=== PATIENT | male | born 1965 | race Caucasian/White ===

== ENCOUNTER 2016-05-10 01:05 | Emergency (ER) | payer OTHER ==
[2016-05-10] MEDS ORDERED: ONDANSETRON HCL/PF 2 MG/ML VIAL IV ONE (01:55)
--- NOTE | 2016-05-10 01:56 | ERNOTE ---
Abdominal HPI - General Chief Complaint: Abdominal Pain Time Seen by Provider: 05/10/16 01:44 Source: patient Exam Limitations: no limitations - Immun/Allergies/Home Medications Immunizatons: IMMUNIZATION HX Immunizations Up to Date Yes History of Influenza Vaccine No Hx Pneumococcal Vaccination Yes Allergies/Adverse Reactions: Allergies No Known Allergies Allergy (Unverified 05/10/16 01:26) Home Medications: HOME MEDICATIONS Dicyclomine HCl [Bentyl] 10 mg PO TID PRN #20 capsule 05/10/16 [Last Taken Unknown] Levothyroxine Sodium [Synthroid] 88 mcg PO DAILY 05/10/16 [Last Taken Unknown] Lisinopril [Zestril] 25 mg PO DAILY 05/10/16 [Last Taken Unknown] Metformin HCl [Metformin HCl ER] 1,000 mg PO BID 05/10/16 [Last Taken Unknown] Simvastatin 10 mg PO HS 05/10/16 [Last Taken Unknown] Tizanidine HCl 4 mg PO BID 05/10/16 [Last Taken Unknown] Venlafaxine HCl [Venlafaxine HCl ER] 225 mg PO DAILY 05/10/16 [Last Taken Unknown] - History of Present Illness Narrative: Pt had onset of periumbilical abdominal pain approx 24 hours ago. Had some nausea and vomited x 1. Tried to go to sleep but couldn't sleep. Pain has now moved to the RLQ. Timing: getting worse Quality: moderate, severe, fullness, sharpness Activities at Onset: none Modifying Factors - (Worsens): Present: lying down, movement Associated Symptoms: Present: nausea, vomiting, loss of appetite Prior Abdominal Problems: Present: none Review of Systems - Review of Systems Constitutional: Present: See HPI, fever - subjective, chills, diaphoresis, fatigue EYE: Present: no symptoms reported ENT: Present: no symptoms reported Respiratory: Present: no symptoms reported Cardiology: Present: no symptoms reported Gastrointestinal/Abdominal: Present: See HPI, eating less, drinking less Genitourinary: Absent: frequency, pain, dysuria Musculoskeletal: Present: no symptoms reported Skin: Present: no symptoms reported Neurological: Present: no symptoms reported Endocrine: Present: no symptoms reported Hematologic/Lymphatic: Present: no symptoms reported - Patient's Past Medical History Patient History - Medical: Arthritis, Diabetes Type 2, Hypothyroidism Patient History - Cardiac/Respiratory: Hypertension, Hyperlipidemia, Sleep Apnea Patient History - Cancer: No Hx of Cancer Patient History - Surgical Procedures: Other Patient History - Other: None - Social History Living Situations: other Abuse History: No History of abuse Psych History: Hx of Anxiety, Hx of Depression Smoking Status: Never smoker Do you dip or chew tobacco: No Alcohol Use: heavy Drug Use: none - Immunizations Immunizations Up to Date: Yes Hx Pneumococcal Vaccination: Yes History of Influenza Vaccine: No Physical Exam - Physical Exam General Appearance: Present: wd/wn, alert, no apparent distress Ears, Nose, Throat: Present: normal ENT inspection, hearing grossly normal Neck: Present: normal inspection, nontender Respiratory: Present: no respiratory distress, normal breath sounds, no accessory muscle use, chest nontender, lungs clear Cardiovascular/Chest: Present: regular rate, rhythm, no murmur, normal peripheral pulses Gastrointestinal/Abdominal: Present: normal bowel sounds, tenderness - RLQ, , rebound - mild. Absent: guarding Back Exam: Present: normal inspection, normal range of motion, no CVA tenderness Extremity Exam: Present: normal inspection, non-tender, no edema, normal range of motion Neurological Exam: Present: alert, oriented, normal mood/affect, no motor/ sensory deficits Skin Exam: Present: normal color, warm/dry Lymphatic Exam: Present: no adenopathy ED Progress - Results and Orders Patient's Lab Results:: I have reviewed the patient's lab results. Results and Orders: Laboratory Tests 05/10/16 05/10/16 01:55 01:55 WBC 15.8 H Hgb 12.9 L Hct 37.6 L Neutrophils % 77.2 H Sodium 138 Potassium 5.0 H Chloride 102 Carbon Dioxide 21.6 L Anion Gap 19.4 H BUN 17 Creatinine 1.72 H Est GFR (Non-Af Amer) 45 L BUN/Creatinine Ratio 9.9 Random Glucose 200 H Calcium 8.9 Total Bilirubin 1.0 AST 23 ALT 68 H Alkaline Phosphatase 53 Total Protein 7.9 Albumin 4.0 Amylase 25 Lipase 102 Laboratory Tests 05/10/16 05/10/16 06:05 06:05 ESR 21 H C-Reactive Prot, Quant 6.1 H - Vital Signs Patient's Vital Signs:: I have reviewed the patient's vital signs. Vital Signs: Vital Signs 05/10/16 01:19 Temperature 38.0 C H Pulse Rate 104 H Respiratory 16 Rate Blood Pressure 117/66 O2 Sat by Pulse 96 Oximetry - CT/Ultrasound CT/Ultrasound Narrative: Thickened cecum and hepatic flexure with mild stranding may be inflammatory / infectious process. Unremarkable appendix. Tiny stone in a contracted gallbladder. Mild hepatomegaly with fatty infiltration. Slightly patulous anal canal with no herniated bowel. - Progress/Reassessment Chief Complaint: Abdominal Pain Progress Note-Subjective: 05/10/16 06:[address] results CRP and ESR ordered. 05/10/16 07:31 Discussed getting an appointment with his PCP next week for follow up in case it does not resolve. Departure - Departure Clinical Impression: Colitis presumed infectious Disposition: Home Follow Up Needed Condition: Good Instructions: Colitis Referrals: Karo Meneses FNP [Primary Care Provider] - Prescriptions: Dicyclomine HCl [Bentyl] 10 mg PO TID PRN #20 capsule PRN Reason: Pain
--- OUTSIDE RECORDS SUMMARY | 2016-05-10 02:05 | XMS REPORT | Continuity of Care Document ---
:1965 Author Organization [employer] [place] [address] Care Team Providers Name Role Phone Provider, None Per Patient Primary Care Provider Unavailable Source Comments This disclosure is being made pursuant to the [employer] program and maynot contain all information available regarding this patient.[facility] Active Allergies and Adverse Reactions No Known Allergies Current Medications Be aware that medications may not be up to date as of this document. Alwaysverify current medications with the patient. Prescription Sig. Disp. Refills Start Date End Date Status metformin (GLUCOPHAGE) Take 1,000 mg by Active 1000 MG tablet mouth 2 (two) times daily with meals. lisinopril Take 20 mg by Active (PRINIVIL,ZESTRIL) 20 MG mouth daily. tablet levothyroxine (SYNTHROID, Take 100 mcg by Active LEVOTHROID) 100 MCG tablet mouth every morning. Active Problems No known active problems Most Recent Encounters Date Type Specialty Providers Description 03/09/2016 Data Import Social History Tobacco Use Types Packs/Day Years Used Date Never Smoker Plan of Care Health Maintenance Due Date Last Done Comments Hepatitis C Screening 02/25/1982 Tetanus/Pertussis (1 - Tdap) 02/25/1983 Colonoscopy 02/25/2014 Well Adult Visit 02/25/2014 Influenza Immunization (#1) 2015 Results from Last 3 Months Not on file
[2016-05-10] MEDS ORDERED: NORMAL SALINE 1,000 ML IV ONE (02:06)
[2016-05-10] MEDS ORDERED: ONDANSETRON HCL/PF 2 MG/ML VIAL ONE (02:07)
[2016-05-10 02:18] LABS: Hematocrit 37.6 % (42.0-52.0); Hemoglobin 12.9 gm/dL (13.5-18.0); Mean Cell Volume 93.1 fl (78-100); Mean Corpuscular Hemoglobin 31.9 pg (27-31); Mean Corpuscular Hgb Conc 34.3 g/dl (32-36); Mean Platelet Volume 10.6 fl (6.0-9.5); Neutrophil # 12.2 K/mm3 (1.3-6.0); Neutrophil % 77.2 % (42-75.0); Platelet Count 227 K/mm3 (150-450); Red Blood Count 4.04 M/mm3 (4.7-6.0); Red Cell Distribution Width 12.6 % (11.5-14.0); White Blood Count 15.8 K/mm3 (4.0-10.5)
[2016-05-10 02:29] LABS: Anion Gap 19.4 mmol/L (6.8-13.8); BUN/Creatinine Ratio 9.9 (9.0-21.6); Ca. Corrected For Albumin 8.6 mg/dL (8.4-10.2); Calcium * 8.9 mg/dL (7.9-10.9); Carbon Dioxide 21.6 mmol/L (24-32.6); Total Protein 7.9 gm/dL (6.2-8.2)
[2016-05-10] MEDS ORDERED: DIATRIZOATE MEGLU/DIATRIZO SOD 30 ML BTL PO ONE (02:59)
[2016-05-10] MEDS ORDERED: DIATRIZOATE MEGLU/DIATRIZO SOD 30 ML BTL ONE (03:02)
[2016-05-10 05:36] VITALS: BP 129/73
== END 2016-05-10 07:40 | disposition home or self-care (01) ==
LOC: ER 01:05
DX: K52.89 Other specified noninfective gastroenteritis and colitis (principal); E78.5 Hyperlipidemia, unspecified; E03.9 Hypothyroidism, unspecified; E11.9 Type 2 diabetes mellitus without complications; F41.9 Anxiety disorder, unspecified; F32.9 Major depressive disorder, single episode, unspecified

== ENCOUNTER 2017-01-04 09:13 | Emergency (ER) | payer OTHER ==
[2017-01-04] MEDS ORDERED: METOCLOPRAMIDE HCL 5 MG/ML VIAL IV ONE (09:33)
[2017-01-04] MEDS ORDERED: diphenhydrAMINE HCL 50 MG/ML VIAL IV ONE (09:33)
[2017-01-04] MEDS ORDERED: diphenhydrAMINE HCL 50 MG/ML VIAL ONE (09:40)
[2017-01-04] MEDS ORDERED: METOCLOPRAMIDE HCL 5 MG/ML VIAL ONE (09:40)
[2017-01-04 09:46] LABS: Hematocrit 38.7 % (42.0-52.0); Hemoglobin 13.3 gm/dL (13.5-18.0); Mean Cell Volume 93.9 fl (78-100); Mean Corpuscular Hemoglobin 32.3 pg (27-31); Mean Corpuscular Hgb Conc 34.4 g/dl (32-36); Mean Platelet Volume 10.5 fl (6.0-9.5); Neutrophil # 6.8 K/mm3 (1.3-6.0); Neutrophil % 62.8 % (42-75.0); Platelet Count 223 K/mm3 (150-450); Red Blood Count 4.12 M/mm3 (4.7-6.0); Red Cell Distribution Width 12.4 % (11.5-14.0); White Blood Count 10.7 K/mm3 (4.0-10.5)
[2017-01-04 09:59] LABS: Albumin * 4.1 gm/dl (3.4-5.0); Anion Gap 15.1 mmol/L (6.8-13.8); BUN/Creatinine Ratio 13.4 (9.0-21.6); Bilirubin, Total 0.7 mg/dL (0.0-1.1); Calcium * 9.4 mg/dL (7.9-10.9); Carbon Dioxide 23.7 mmol/L (24-32.6); Magnesium 1.4 mg/dL (1.2-2.8); Potassium 4.8 mmol/L (3.4-4.6); Total Protein 8.2 gm/dL (6.2-8.2)
[2017-01-04] MEDS ORDERED: DIATRIZOATE MEGLUMINE, SODIUM 30 ML BTL ONE (10:06)
--- NOTE | 2017-01-04 10:09 | ERNOTE ---
Abdominal HPI - General Chief Complaint: Abdominal Pain Time Seen by Provider: 01/04/17 09:23 Source: patient Exam Limitations: no limitations - Immun/Allergies/Home Medications Immunizatons: IMMUNIZATION HX Immunizations Up to Date Yes History of Influenza Vaccine No Hx Pneumococcal Vaccination Yes Allergies/Adverse Reactions: Allergies No Known Allergies Allergy (Verified 01/04/17 09:21) Home Medications: HOME MEDICATIONS Levothyroxine Sodium [Synthroid] 88 mcg PO DAILY 05/10/16 [Last Taken Unknown] Lisinopril [Zestril] 25 mg PO DAILY 05/10/16 [Last Taken Unknown] Simvastatin 10 mg PO HS 05/10/16 [Last Taken Unknown] Venlafaxine HCl [Venlafaxine HCl ER] 225 mg PO DAILY 05/10/16 [Last Taken Unknown] metFORMIN HCL [Metformin HCl ER] 1,000 mg PO BID 05/10/16 [Last Taken Unknown] tiZANidine HCL [Tizanidine HCl] 4 mg PO BID 05/10/16 [Last Taken Unknown] Naproxen [Naprosyn] 500 mg PO BID #60 tablet 01/04/17 [Last Taken Unknown] - History of Present Illness Narrative: Patient presents with right-sided abdominal pain, somewhat reminiscent of the pain that he had in March when he was diagnosed with colitis. He describes the pain as moderate in severity. Timing: constant Quality: moderate Activities at Onset: none Associated Symptoms: Present: nausea Prior Abdominal Problems: Present: similar symptoms Review of Systems - Review of Systems Constitutional: Present: See HPI EYE: Present: no symptoms reported ENT: Present: no symptoms reported Respiratory: Present: no symptoms reported Cardiology: Present: no symptoms reported Gastrointestinal/Abdominal: Present: See HPI Genitourinary: Present: no symptoms reported Musculoskeletal: Present: no symptoms reported Skin: Present: no symptoms reported Neurological: Present: no symptoms reported Endocrine: Present: no symptoms reported Hematologic/Lymphatic: Present: no symptoms reported Psych: Present: no symptoms reported - Patient's Past Medical History Patient History - Medical: Arthritis, Diabetes Type 2, Hypothyroidism, Other - colitis Patient History - Cardiac/Respiratory: Hypertension, Hyperlipidemia, Sleep Apnea Patient History - Cancer: No Hx of Cancer Patient History - Surgical Procedures: Other Patient History - Other: None - Social History Living Situations: home Abuse History: No History of abuse Psych History: Hx of Anxiety, Hx of Depression Alcohol Use: none Drug Use: none - Immunizations Immunizations Up to Date: Yes Hx Pneumococcal Vaccination: Yes History of Influenza Vaccine: No Physical Exam - Physical Exam General Appearance: Present: wd/wn, alert, moderate distress Head Exam: Present: normal inspection Eye Exam: Normal inspection: bilateral, PERRL: bilateral Ears, Nose, Throat: Present: normal ENT inspection, H, normal pharynx Neck: Present: normal inspection, nontender Respiratory: Present: no respiratory distress, normal breath sounds, no accessory muscle use, chest nontender, lungs clear Cardiovascular/Chest: Present: regular rate, rhythm, no murmur, normal peripheral pulses Gastrointestinal/Abdominal: Present: normal bowel sounds, nondistended, tenderness, hepatomegaly, other - morbidly obese Rectal Exam: Present: deferred Back Exam: Present: normal inspection, normal range of motion Extremity Exam: Present: normal inspection, non-tender, no edema, normal range of motion Neurological Exam: Present: alert, oriented, normal mood/affect Skin Exam: Present: normal color, warm/dry Lymphatic Exam: Present: no adenopathy ED Progress - Results and Orders Patient's Lab Results:: I have reviewed the patient's lab results. - Vital Signs Patient's Vital Signs:: I have reviewed the patient's vital signs. Vital Signs: Vital Signs 01/04/17 09:16 Temperature 36.8 C Pulse Rate 84 Respiratory 12 Rate Blood Pressure 110/73 O2 Sat by Pulse 95 Oximetry - CT/Ultrasound CT/Ultrasound Narrative: Ultrasound of the liver gallbladder as well as CT of the abdomen and pelvis were reviewed by me - Progress/Reassessment Chief Complaint: Abdominal Pain Plan - Plan Plan: Patient appears to have inflammation in the form of epiploic appendagitis and this is nonsurgical . Patient will be given a prescription for nonsteroidal anti-inflammatories and he will follow-up with his family physician as needed. Departure Clinical Impression: Epiploic appendagitis - Departure Disposition: Home self-care Condition: Good Instructions: Abdominal Pain, Pediatric Referrals: Karo Meneses FNP [Primary Care Provider] - Prescriptions: Naproxen [Naprosyn] 500 mg PO BID #60 tablet
[2017-01-04] MEDS ORDERED: DIATRIZOATE MEGLUMINE, SODIUM 30 ML BTL PO ONE (10:12)
[2017-01-04 10:26] LABS: Urine Bilirubin Negative (NEGATIVE); Urine Ketone Negative (NEGATIVE); Urine Nitrite Negative (NEGATIVE); Urine Protein Negative (NEGATIVE); Urine Specific Gravity 1.025 SP.GR. (1.005-1.030); Urine Urobilinogen Normal (NORMAL)
[2017-01-04] MEDS ORDERED: NORMAL SALINE 1,000 ML IV ONE (10:30)
[2017-01-04 10:36] LABS: Urine Appearance Slightly Cloudy; Urine Bacteria None Seen; Urine Blood 5 /ul (NEGATIVE); Urine Color Yellow; Urine Fine Granular Cast 0-5 /LPF; Urine RBC 0-5 /hpf (0-5); Urine WBC 0-5 /hpf (0-5)
[2017-01-04 13:38] VITALS: BP 113/56
== END 2017-01-04 13:35 | disposition home or self-care (01) ==
LOC: ER 09:13
DX: K63.89 Other specified diseases of intestine (principal); M19.90 Unspecified osteoarthritis, unspecified site; E11.9 Type 2 diabetes mellitus without complications; E03.9 Hypothyroidism, unspecified; I10 Essential (primary) hypertension; E78.5 Hyperlipidemia, unspecified

== ENCOUNTER 2017-02-19 12:26 | Emergency (ER) | payer OTHER ==
[2017-02-19 12:36] VITALS: BP 128/98
--- NOTE | 2017-02-19 13:30 | ERNOTE ---
Lower Extremity HPI - General Lower Extremities Pain: ankle: right Time Seen by Provider: 02/19/17 12:39 Source: patient Exam Limitations: no limitations - Immun/Allergies/Home Medications Immunizations: IMMUNIZATION HX Immunizations Up to Date Yes History of Influenza Vaccine No Hx Pneumococcal Vaccination Yes Allergies/Adverse Reactions: Allergies Allergy/AdvReac Type Severity Reaction Status Date / Time No Known Allergies Allergy Verified 02/19/17 12:36 Home Medications: HOME MEDICATIONS Levothyroxine Sodium [Synthroid] 88 mcg PO DAILY 05/10/16 [Last Taken Unknown] Lisinopril [Zestril] 25 mg PO DAILY 05/10/16 [Last Taken Unknown] Simvastatin 10 mg PO HS 05/10/16 [Last Taken Unknown] Venlafaxine HCl [Venlafaxine HCl ER] 225 mg PO DAILY 05/10/16 [Last Taken Unknown] metFORMIN HCL [Metformin HCl ER] 1,000 mg PO BID 05/10/16 [Last Taken Unknown] tiZANidine HCL [Tizanidine HCl] 4 mg PO BID 05/10/16 [Last Taken Unknown] ALPRAZolam [Xanax] 0.25 mg PO PRN PRN 02/19/17 [Last Taken Unknown] Diclofenac Sodium [Diclofenac Sodium ER] 100 mg PO DAILY 02/19/17 [Last Taken Unknown] Naproxen [Naprosyn] 500 mg PO BID #60 tablet 02/19/17 [Last Taken Unknown] - History of Present Illness Narrative: Patient has a history of right ankle sprains, first one approximately 7 years ago and another one approximately one week ago. Patient twisted it again yesterday and now is having some difficulty with weightbearing. Describes her pain as being loose moderate in intensity that increases with weightbearing. Occurred: yesterday Method of Injury: Reports: twisted Loss of Consciousness: Reports: no loss of consciousness Other Injuries: Reports: none Review of Systems - Review of Systems Constitutional: Present: See HPI EYE: Present: no symptoms reported ENT: Present: no symptoms reported Respiratory: Present: no symptoms reported Cardiology: Present: no symptoms reported Gastrointestinal/Abdominal: Present: no symptoms reported Genitourinary: Present: no symptoms reported Musculoskeletal: Present: joint pain, joint swelling, other - decreased range of motion in the right ankle secondary to pain and swelling, distribution of pain that follows the peroneus musculature Skin: Present: no symptoms reported Neurological: Present: no symptoms reported Endocrine: Present: no symptoms reported Hematologic/Lymphatic: Present: no symptoms reported Psych: Present: no symptoms reported - Patient's Past Medical History Patient History - Medical: Arthritis, Diabetes Type 2, Hypothyroidism, Other Patient History - Cardiac/Respiratory: Hypertension, Hyperlipidemia, Sleep Apnea Patient History - Cancer: No Hx of Cancer Patient History - Surgical Procedures: Other Patient History - Other: None - Social History Living Situations: home Abuse History: No History of abuse Psych History: Hx of Anxiety, Hx of Depression Smoking Status: Never smoker Alcohol Use: occasionally Drug Use: none - Immunizations Immunizations Up to Date: Yes Hx Pneumococcal Vaccination: Yes History of Influenza Vaccine: No ED Progress - Vital Signs Patient's Vital Signs:: I have reviewed the patient's vital signs. Vital Signs: Vital Signs 02/19/17 12:32 Temperature 36.6 C Pulse Rate 94 Respiratory 16 Rate Blood Pressure 128/98 O2 Sat by Pulse 99 Oximetry - X-Ray X-Ray #1 X-Ray: ankle Interpretation: Reviewed by me - Progress/Reassessment Chief Complaint: Ankle Injury/ Pain Plan - Plan Plan: I suspect the patient has hypermobility of the ankle due to multiple sprain type injuries. Patient be placed in an air splint, nonsteroidal anti- inflammatories and a referral to orthopedic surgery. Departure Clinical Impression: Ankle sprain Qualifiers: Encounter type: initial encounter Involved ligament of ankle: unspecified ligament Laterality: right Qualified Code(s): S93.401A - Sprain of unspecified ligament of right ankle, initial encounter - Departure Disposition: Home self-care Condition: Good Instructions: How to Use a Stirrup Ankle Brace, [id number], Ankle Sprain, [id number] Referrals: Karo Meneses FNP [Primary Care Provider] - Prescriptions: Naproxen [Naprosyn] 500 mg PO BID #60 tablet
== END 2017-02-19 13:30 | disposition home or self-care (01) ==
LOC: ER 12:26
PROC: 2W3QX1Z Immobilization of Right Lower Leg using Splint (ICD-10-PCS; principal; 2017-02-19)
DX: S93.401A Sprain of unspecified ligament of right ankle, initial encounter (principal); M19.90 Unspecified osteoarthritis, unspecified site; E11.9 Type 2 diabetes mellitus without complications; E03.9 Hypothyroidism, unspecified; I10 Essential (primary) hypertension; E78.5 Hyperlipidemia, unspecified; X58.XXXA Exposure to other specified factors, initial encounter; Y93.9 Activity, unspecified; Y92.9 Unspecified place or not applicable

== ENCOUNTER 2018-12-20 02:49 | Inpatient (IN) ==
[2018-12-20] MEDS ORDERED: NALOXONE HCL 1 MG/1 ML SYRG IV ONE (03:06)
[2018-12-20] MEDS ORDERED: NORMAL SALINE 1,000 ML IV ONE ×4 (03:07→09:32)
--- NOTE | 2018-12-20 03:10 | ERNOTE ---
<Farooq Baez - Last Filed: 12/20/18 07:51> Neuro HPI ER Record Date of Service: 12/20/18 Presenting Symptoms: confusion, other Time Seen by Provider: 12/20/18 03:03 Source: EMS notes reviewed Exam Limitations: intoxication - Intoxication Immunizations: IMMUNIZATION HX Immunizations Up to Date Yes History of Influenza Vaccine No Hx Pneumococcal Vaccination No Allergies/Adverse Reactions: Allergies Allergy/AdvReac Type Severity Reaction Status Date / Time No Known Allergies Allergy Verified 11/28/18 14:21 Home Medications: HOME MEDICATIONS C-PAP See Dose Instructions .ROUTE .MEDSUPPLY #1 ea 06/14/18 [Last Taken Unknown] levothyroxine 88 mcg tablet See Rx Instructions .ROUTE .COMPLEX #90 tab 07/01/18 [Last Taken Unknown] venlafaxine ER 225 mg tablet,extended release 24 hr See Rx Instructions .ROUTE .COMPLEX #90 tab 07/01/18 [Last Taken Unknown] simvastatin 40 mg tablet 40 mg PO QPM #90 tab 07/30/18 [Last Taken Unknown] metformin ER 1,000 mg tablet,extended release 24hr 1,000 mg PO QPM #90 tab 08/07/18 [Last Taken Unknown] FreeStyle Lite Strips See Dose Instructions .ROUTE .MEDSUPPLY #100 ea NS 10/07/18 [Last Taken Unknown] glipizide ER 10 mg tablet, extended release 24 hr 10 mg PO DAILY #90 tab 10/07/18 [Last Taken Unknown] lisinopril 10 mg tablet 5 mg PO DAILY #45 tab 10/07/18 [Last Taken Unknown] alprazolam 1 mg tablet 1 mg PO TID PRN #90 tab 11/04/18 [Last Taken Unknown] blood sugar diagnostic strips See Dose Instructions .ROUTE .MEDSUPPLY #100 ea 11/04/18 [Last Taken Unknown] blood-glucose meter See Dose Instructions .ROUTE .MEDSUPPLY #1 ea 11/04/18 [Last Taken Unknown] tizanidine 4 mg capsule 4 mg PO TID PRN #60 cap 11/07/18 [Last Taken Unknown] tramadol 50 mg tablet 50 mg PO Q8H PRN #30 tab 11/20/18 [Last Taken Unknown] diclofenac sodium 50 mg tablet,delayed release 50 mg PO DAILY #30 tab 12/09/18 [Last Taken Unknown] - History of Present Illness Narrative: This is a 53-year-old gentleman brought to the emergency department by EMS. He is obtunded. By report the patient was drinking since 7 PM. Police were called out to the house several times this evening as there was an argument between the patient and his . The nursing staff spoke with the and they were the is not willing to come out to the hospital. By report the patient may have taken tizanidine. Apparently someone in talking to the patient before he became obtunded and said that the patient admitted to taking 1 Xanax. No other information is available Review of Systems - Narrative Narrative: Unable to obtain review of systems secondary to patient condition Medical History (Updated 12/20/18 @ 06:12 by Farooq Baez MD) Osteoarthritis (Chronic) Onset Date: Unknown Obstructive sleep apnea (Chronic) Onset Date: Unknown Obesity (Chronic) Onset Date: Unknown Hypothyroidism (Chronic) Onset Date: Unknown Hypertension (Chronic) Onset Date: Unknown Type 2 diabetes mellitus (Chronic) Onset Date: Unknown Depression (Chronic) Onset Date: Unknown Anxiety (Chronic) Onset Date: Unknown Cirrhosis of liver Onset Date: Unknown History of hepatitis C Onset Date: Unknown Surgical History: Surgical History (Updated 10/25/17 @ 14:04 by Danni Allred RN) H/O surgical amputation of finger Onset Date: Unknown History of nasal surgery Onset Date: Unknown Family History: Family History (Updated 10/25/17 @ 14:05 by Danni Allred RN) Father Diabetes Mother Renal failure Post-operative complication Social History: (Last Updated 11/28/18 @ 16:06 by ALBERT Aguirre) Social History: adopted: No foster care: No jail: No Marital status: household members: spouse, children number of children: 2 caregiver/support person: No current occupational status: employed current occupation: [employer] Highest education level completed: some college, no degree Service: No Tobacco: Smoking Status: Never smoker Alcohol: alcohol intake: current Alcohol type: hard liquor alcohol intake frequency: a few times a week Substance Use: substance use type: does not use Dietary Habits: caffeine: Yes caffeine comment: somedays Type: carbonated beverages Physical Exam - Physical Exam General Appearance: Present: wd/wn, no apparent distress, other - Patient is sleeping. Minimal response to painful stimuli. Smells strongly of alcohol. Protecting his airway Head Exam: Present: normal inspection, no evidence of injury Eye Exam: Normal inspection: bilateral, PERRL: bilateral, Other: bilateral - Pupils are 4 mm and reactive Ears, Nose, Throat: Present: normal ENT inspection, normal pharynx Neck: Present: normal inspection Respiratory: Present: no respiratory distress, normal breath sounds, chest nontender, lungs clear Cardiovascular/Chest: Present: regular rate, rhythm, no murmur Gastrointestinal/Abdominal: Present: normal bowel sounds, nontender, nondistended Back Exam: Present: other - Back exam cannot be performed. This is a very large person who is Extremity Exam: Present: normal inspection - intoxicated nearly to the point of unconsciousness, normal range of motion Neurological Exam: Present: other - Patient is intoxicated. Protecting his airways. Localizes pain. Makes some mumbling noises. Eyes closed to voice Skin Exam: Present: normal color, warm/dry Lymphatic Exam: Present: no adenopathy Progress - Results and Orders Patient's Lab Results:: I have reviewed the patient's lab results. - Vital Signs Patient's Vital Signs:: I have reviewed the patient's vital signs. Vital Signs: Vital Signs 12/20/18 02:55 Pulse Rate 62 Respiratory Rate 21 H Blood Pressure 101/85 O2 Sat by Pulse Oximetry 91 L - EKG EKG #1 EKG read: Interp. by me EKG Comments: Sinus rhythm ventricular rate of 62. Normal axis. Normal intervals. No ST elevation. T wave flattening in 3 and V1 which are normal variants. T waves have normal morphology and direction EKG #2 EKG read: Interp. by me EKG Comments: Second EKG demonstrates sinus bradycardia ventricular rate of 55, axis is slightly leftward at -4 degrees. Again T wave inversion in 3 and a V1 which are normal variants. There is no signs of acute ischemia - Progress/Reassessment Chief Complaint: Altered Mental Status Plan - Plan Plan: The patient is gotten 4 L of saline IV. His blood pressures have improved to 87/42. Patient is now arousable. When I asked him why he took the things that he did last night he said that he "took them to get high "I question the patient in the presence of his nurse and the patient is adamant he did not take these things to hurt himself. Am going let him sober up more. I will reevaluate him in a bit of time and if he maintains the same story then we are going to let him go home. The patient's had a [place] catheter and received 5 L of saline. Not putting out much urine. We have rechecked his basic metabolic panel and his creatinine is up to 1.78 from 1.63. Interestingly his potassium was read back at 6.8. EKG is not consistent with a potassium of 6.8. I am going to have them get a completely new sample and recheck it. I think the patient needs to be kept here in the department until he starts to urinate significantly. If there is no urine output in the next few hours I am good I asked my colleague, Dr. Das, to admit the patient Departure Clinical Impression: Hyperkalemia, Hyperglycemia Drug overdose, intentional Qualifiers: Encounter type: initial encounter Qualified Code(s): T50.902A - Poisoning by unspecified drugs, medicaments and biological substances, intentional self-harm, initial encounter - Departure Disposition: Short Term Hospital Inpatient Condition: Serious <Manish Das - Last Filed: 12/20/18 09:31> Neuro HPI ER Record Immunizations: IMMUNIZATION HX Immunizations Up to Date Yes History of Influenza Vaccine No Hx Pneumococcal Vaccination No Medical History (Updated 12/20/18 @ 06:12 by Farooq Baez MD) Osteoarthritis (Chronic) Onset Date: Unknown Obstructive sleep apnea (Chronic) Onset Date: Unknown Obesity (Chronic) Onset Date: Unknown Hypothyroidism (Chronic) Onset Date: Unknown Hypertension (Chronic) Onset Date: Unknown Type 2 diabetes mellitus (Chronic) Onset Date: Unknown Depression (Chronic) Onset Date: Unknown Anxiety (Chronic) Onset Date: Unknown Cirrhosis of liver Onset Date: Unknown History of hepatitis C Onset Date: Unknown Surgical History: Surgical History (Updated 10/25/17 @ 14:04 by Danni Allred RN) H/O surgical amputation of finger Onset Date: Unknown History of nasal surgery Onset Date: Unknown Family History: Family History (Updated 10/25/17 @ 14:05 by Danni Allred RN) Father Diabetes Mother Renal failure Post-operative complication Social History: (Last Updated 11/28/18 @ 16:06 by ALBERT Aguirre) Social History: adopted: No foster care: No jail: No Marital status: household members: spouse, children number of children: 2 caregiver/support person: No current occupational status: employed 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 Highest education level completed: some college, no degree Service: No Tobacco: Smoking Status: Never smoker Alcohol: alcohol intake: current Alcohol type: hard liquor alcohol intake frequency: a few times a week Substance Use: substance use type: does not use Dietary Habits: caffeine: Yes caffeine comment: somedays Type: carbonated beverages Progress - Vital Signs Vital Signs: Vital Signs 12/20/18 02:55 12/20/18 02:57 12/20/18 03:17 Pulse Rate 62 62 65 Respiratory Rate 21 H 21 H Blood Pressure 101/85 103/85 O2 Sat by Pulse Oximetry 91 L 94 12/20/18 03:43 12/20/18 03:44 12/20/18 03:55 Pulse Rate 65 66 67 Respiratory Rate 21 H 20 21 H Blood Pressure 59/17 L 57/28 L 62/33 L O2 Sat by Pulse Oximetry 96 95 95 12/20/18 04:10 12/20/18 04:12 12/20/18 04:14 Pulse Rate 61 60 59 L Respiratory Rate 20 19 Blood Pressure 63/31 L 64/37 L 67/35 L O2 Sat by Pulse Oximetry 95 95 98 12/20/18 04:18 12/20/18 04:23 12/20/18 04:28 Pulse Rate 60 59 L 58 L Respiratory Rate 19 18 19 Blood Pressure 69/38 L 73/35 L 75/42 L O2 Sat by Pulse Oximetry 96 97 98 12/20/18 04:33 12/20/18 04:38 12/20/18 04:43 Pulse Rate 58 L 58 L 58 L Respiratory Rate 19 18 19 Blood Pressure 78/46 L 79/48 L 78/49 L O2 Sat by Pulse Oximetry 97 98 97 12/20/18 04:48 12/20/18 04:53 12/20/18 04:58 Pulse Rate 59 L 58 L 59 L Respiratory Rate 19 19 19 Blood Pressure 78/47 L 77/47 L 78/49 L O2 Sat by Pulse Oximetry 97 96 97 12/20/18 05:03 12/20/18 05:08 12/20/18 05:15 Pulse Rate 59 L 59 L 58 L Respiratory Rate 18 19 19 Blood Pressure 78/39 L 80/46 L 83/45 L O2 Sat by Pulse Oximetry 97 97 97 12/20/18 05:18 12/20/18 05:27 12/20/18 05:33 Pulse Rate 58 L 58 L 59 L Respiratory Rate 20 21 H 21 H Blood Pressure 75/46 L 80/51 L 75/50 L O2 Sat by Pulse Oximetry 97 97 97 12/20/18 05:39 12/20/18 05:44 12/20/18 05:53 Pulse Rate 58 L 59 L 59 L Respiratory Rate 20 21 H 21 H Blood Pressure 88/49 L 88/53 L 85/43 L O2 Sat by Pulse Oximetry 97 97 98 12/20/18 06:00 12/20/18 06:15 12/20/18 06:30 Pulse Rate 58 L 55 L 57 L Respiratory Rate 20 29 H 19 Blood Pressure 79/41 L 88/51 L 85/52 L O2 Sat by Pulse Oximetry 97 97 100 12/20/18 06:45 12/20/18 07:00 12/20/18 07:15 Pulse Rate 56 L 57 L 65 Respiratory Rate 20 20 19 Blood Pressure 81/47 L 80/51 L 84/45 L O2 Sat by Pulse Oximetry 97 96 98 12/20/18 07:38 12/20/18 07:45 12/20/18 08:00 Pulse Rate 58 L 58 L 54 L Respiratory Rate 19 19 20 Blood Pressure 86/52 L 84/48 L 81/54 L O2 Sat by Pulse Oximetry 97 97 98 12/20/18 08:39 12/20/18 08:45 12/20/18 09:00 Pulse Rate 57 L 58 L 67 Respiratory Rate 22 H 20 19 Blood Pressure 86/45 L 56/50 L 84/49 L O2 Sat by Pulse Oximetry 97 95 97 - Progress/Reassessment Progress:: Improved - Transfer of Care Expected Disposition: Admit Plan - Plan Plan: markus discussed with dr gandara, to admit to ccu
[2018-12-20 03:29] LABS: Hematocrit 36.9 % (42.0-52.0); Hemoglobin 12.5 gm/dL (13.5-18.0); Mean Cell Volume 96.9 fl (78-100); Mean Corpuscular Hemoglobin 32.8 pg (27-31); Mean Corpuscular Hgb Conc 33.9 g/dl (32-36); Mean Platelet Volume 10.3 fl (8-11.3); Neutrophil % 35.5 % (42-75.0); Platelet Count 242 K/mm3 (150-450); Red Blood Count 3.81 M/mm3 (4.7-6.0); Red Cell Distribution Width 13.2 % (11.5-14.0); White Blood Count 8.5 K/mm3 (4.0-10.5)
[2018-12-20 03:42] LABS: Cocaine Ur Negative (NEGATIVE); Urine Barbiturate Negative (NEGATIVE); Urine Benzodiazepines Negative (NEGATIVE); Urine Opiates Negative (NEGATIVE); Urine PCP Negative (NEGATIVE); Urine THC Negative (NEGATIVE)
[2018-12-20 03:43] LABS: ALT 57 U/L (19-67); AST 31 U/L (0-48); Albumin * 3.5 gm/dl (3.4-5.0); Alkaline Phosphatase * 55 U/L (50-170); Anion Gap 13.4 mmol/L (6.8-13.8); BUN/Creatinine Ratio 12.3 (9.0-21.6); Bilirubin, Total 0.2 mg/dL (0.0-1.1); Blood Urea Nitrogen 20 mg/dL (6-23); Ca. Corrected For Albumin 8.1 mg/dL (8.4-10.2); Carbon Dioxide 24.4 mmol/L (24-32.6); Chloride 103 mmol/L (97-106); Glucose * 342 mg/dL (70-110); Lipase 259 U/L (73-393); Potassium 4.8 mmol/L (3.4-4.6); Salicylate Less than 2.8 mg/dL (2.8-20.0); Sodium 136 mmol/L (132-142); Total Protein 6.9 gm/dL (6.2-8.2)
[2018-12-20] MEDS: NORMAL SALINE 1,000 ML IV ONE ×2 (04:11→05:07)
[2018-12-20] MEDS ORDERED: NORMAL SALINE 1,000 ML IV PRN (06:19)
[2018-12-20 07:22] LABS: Anion Gap 13.6 mmol/L (6.8-13.8); BUN/Creatinine Ratio 11.8 (9.0-21.6); Calcium * 6.8 mg/dL (7.9-10.9); Carbon Dioxide 21.3 mmol/L (24-32.6); Estimated Creat Clear 52.1
[2018-12-20 07:30] LABS: Potassium 6.9 mmol/L (3.4-4.6)
[2018-12-20 08:07] LABS: BUN/Creatinine Ratio 12.3 (9.0-21.6); Calcium * 6.6 mg/dL (7.9-10.9); Carbon Dioxide 20.9 mmol/L (24-32.6); Estimated Creat Clear 54.2
[2018-12-20 08:13] LABS: Potassium 6.9 mmol/L (3.4-4.6)
[2018-12-20] MEDS ORDERED: INSULIN REGULAR, HUMAN 100 UNITS/ML VIAL IV ONE (08:30)
[2018-12-20] MEDS ORDERED: CALCIUM GLUCONATE 4.65 MEQ/10 ML VIAL IV ONE (08:31)
[2018-12-20] MEDS ORDERED: SODIUM POLYSTYRENE SULFON/SORB 15 G/60 ML ORAL.SUSP PO ONE (09:34)
[2018-12-20] MEDS: NORMAL SALINE 1,000 ML IV PRN ×3 (09:42→21:47)
[2018-12-20 10:08] LABS: Anion Gap 13.8 mmol/L (6.8-13.8); BUN/Creatinine Ratio 13.2 (9.0-21.6); Blood Urea Nitrogen 22 mg/dL (6-23); Calcium * 7.2 mg/dL (7.9-10.9); Carbon Dioxide 19.9 mmol/L (24-32.6); Chloride 111 mmol/L (97-106); Estimated Creat Clear 55.5; Glucose * 298 mg/dL (70-110); Potassium 5.7 mmol/L (3.4-4.6); Sodium 139 mmol/L (132-142)
[2018-12-20 10:09] LABS: Troponin I Less than 0.017 ng/mL (0.00-0.10)
--- NOTE | 2018-12-20 12:09 | HP ---
Chief Complaint - Chief Complaint Date of Service: 12/20/18 Time of Service: 12:08 Chief Complaint: alcohol intoxication, hyperkalemia, hypotension History of Present Illness: Patient with past medical history of diabetes, decreased renal function, alcohol abuse was brought to the ER after excessive drinking and taking on clear substances. He was initially obtunded, only responding to deep sternal rub with hypotension. He was given aggressive IV hydration in the ED and pressors were not used. His potassium was found to be 6.9, verified on repeat. EKG did not reveal T wave changes. At the time of my exam, he wakens easily, and is able to answer questions. He reports drinking 1/5 of vodka last night and taking 4 tizanidine tablets. He says he drinks about 3 times a week. Recent medication adjustments were made to due to his decreased renal function and uncontrolled diabetes. He denies other symptoms of infection. Medical History (Updated 12/20/18 @ 13:03 by Karo Santos DO) Osteoarthritis (Chronic) Onset Date: Unknown Obstructive sleep apnea (Chronic) Onset Date: Unknown Obesity (Chronic) Onset Date: Unknown Hypothyroidism (Chronic) Onset Date: Unknown Hypertension (Chronic) Onset Date: Unknown Type 2 diabetes mellitus (Chronic) Onset Date: Unknown Depression (Chronic) Onset Date: Unknown Anxiety (Chronic) Onset Date: Unknown Cirrhosis of liver Onset Date: Unknown History of hepatitis C Onset Date: Unknown Surgical History: Surgical History (Updated 12/20/18 @ 12:09 by Karo Santos DO) H/O surgical amputation of finger Onset Date: Unknown History of nasal surgery Onset Date: Unknown Family History: Family History (Updated 10/25/17 @ 14:05 by Danni Allred RN) Father Diabetes Mother Renal failure Post-operative complication Social History: (Last Reviewed 12/20/18 @ 10:17 by Lenka Mello RN) Social History: adopted: No foster care: No prison: No Marital status: household members: spouse, children number of children: 2 caregiver/support person: No current occupational status: employed 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 Highest education level completed: some college, no degree Service: No Tobacco: Smoking Status: Never smoker Alcohol: alcohol intake: current Alcohol type: hard liquor alcohol intake frequency: a few times a week Substance Use: substance use type: does not use Dietary Habits: caffeine: Yes caffeine comment: somedays Type: carbonated beverages Review Of Systems (GEN) - Review of Systems Generalized/Overall Review: Absent: Fever EENTM: Absent: Throat Pain Respiratory: Absent: Cough, Shortness of Breath Cardiac: Absent: Chest Pain, Edema Abdominal: Absent: Nausea, Vomiting, Diarrhea Genitourinary: Absent: Urgency Musculoskeletal: Present: Joint Pain - Left shoulder after recent AC separation, bilateral knees Neurological: Absent: Seizure Skin: Present: No Symptoms Reported Immunizations: IMMUNIZATION HX Immunizations Up to Date Yes History of Influenza Vaccine No Hx Pneumococcal Vaccination No Allergies/Adverse Reactions: Allergies Allergy/AdvReac Type Severity Reaction Status Date / Time No Known Allergies Allergy Verified 12/20/18 10:17 Home Medications: HOME MEDICATIONS C-PAP See Dose Instructions .ROUTE .MEDSUPPLY #1 ea 06/14/18 [Last Taken Unknown] simvastatin 40 mg tablet 40 mg PO QPM #90 tab 07/30/18 [Last Taken 12/19/18] metformin ER 1,000 mg tablet,extended release 24hr 1,000 mg PO QPM #90 tab 08/07/18 [Last Taken 12/19/18] FreeStyle Lite Strips See Dose Instructions .ROUTE .MEDSUPPLY #100 ea NS 10/07/18 [Last Taken Unknown] glipizide ER 10 mg tablet, extended release 24 hr 10 mg PO DAILY #90 tab 10/07/18 [Last Taken 12/19/18] lisinopril 10 mg tablet 5 mg PO DAILY #45 tab 10/07/18 [Last Taken 12/19/18] alprazolam 1 mg tablet 1 mg PO TID PRN #90 tab 11/04/18 [Last Taken 12/19/18] blood sugar diagnostic strips See Dose Instructions .ROUTE .MEDSUPPLY #100 ea [Last Taken Unknown] blood-glucose meter See Dose Instructions .ROUTE .MEDSUPPLY #1 ea 11/04/18 [Last Taken Unknown] tizanidine 4 mg capsule 4 mg PO TID PRN #60 cap 11/07/18 [Last Taken 12/20/18] tramadol 50 mg tablet 50 mg PO Q8H PRN #30 tab 11/20/18 [Last Taken Unknown] diclofenac sodium 50 mg tablet,delayed release 50 mg PO DAILY #30 tab 12/09/18 [Last Taken 12/19/18] Levothyroxine Sodium [Synthroid] 88 mcg PO DAILY 12/20/18 [Last Taken 12/19/18] Melatonin 10 mg PO HS PRN 12/20/18 [Last Taken Unknown] Venlafaxine HCl [Venlafaxine HCl ER] 225 mg PO DAILY 12/20/18 [Last Taken 12/19/18] Exam - Exam Vital Signs: Vital Signs - Last Taken Temp 36 C 12/20/18 11:00 Pulse 67 12/20/18 11:00 Resp 20 12/20/18 11:00 BP 91/52 12/20/18 11:00 Pulse Ox 97 12/20/18 11:00 Constitutional: Present: No distress, Obese Respiratory: Present: lungs clear - Distant lung sounds secondary to body habitus, no respiratory distress Cardiovascular/Chest: Present: bradycardia Abdomen: Present: Normal bowel sounds, nontender, obese Extremity: Absent: lower extremity edema Neurologic: Present: alert Thoughts: Present: normal mood /affect Diagnostic Studies: Abnormal Lab Results 12/20/18 12/20/18 12/20/18 Range/Units 03:25 03:25 07:10 RBC 3.81 L (4.7-6.0) M/mm3 Hgb 12.5 L (13.5-18.0) gm/dL Hct 36.9 L (42.0-52.0) % MCH 32.8 H (27-31) pg Immature Gran % (Auto) 0.70 H (0.001-0.429) % Immature Gran # (Auto) 0.06 H (0.000-0.0310) K/mm3 Neutrophils % 35.5 L (42-75.0) % Lymphocytes % 51.7 H (20-51) % Eosinophils % 4.2 H (0.0-3.0) % Lymphocytes # 4.39 H (1.5-3.5) k/mm3 Potassium 4.8 H 6.9 H* D (3.4-4.6) mmol/L Chloride 107 H (97-106) mmol/L Carbon Dioxide 21.3 L (24-32.6) mmol/L Anion Gap (6.8-13.8) mmol/L Creatinine 1.63 H 1.78 H (0.4-1.4) mg/dL Est GFR (Non-Af Amer) 47 L 43 L (60-130) mL/min Random Glucose 342 H 412 H (70-110) mg/dL Lactic Acid, Venous (0.4-2.0) mmol/L Calcium 6.8 L (7.9-10.9) mg/dL Calcium Adj for Albumin 8.1 L (8.4-10.2) mg/dL Salicylates Less than 2.8 L (2.8-20.0) mg/dL Acetaminophen Less than 0.2 L (10.0-30.0) mcg/mL Ethyl Alcohol 219.0 H (0.0-10.0) mg/dL 12/20/18 12/20/18 12/20/18 Range/Units 08:00 09:17 09:17 RBC (4.7-6.0) M/mm3 Hgb (13.5-18.0) gm/dL Hct (42.0-52.0) % MCH (27-31) pg Immature Gran % (Auto) (0.001-0.429) % Immature Gran # (Auto) (0.000-0.0310) K/mm3 Neutrophils % (42-75.0) % Lymphocytes % (20-51) % Eosinophils % (0.0-3.0) % Lymphocytes # (1.5-3.5) k/mm3 Potassium 6.9 H* 5.7 H (3.4-4.6) mmol/L Chloride 107 H 111 H (97-106) mmol/L Carbon Dioxide 20.9 L 19.9 L (24-32.6) mmol/L Anion Gap 14.0 H (6.8-13.8) mmol/L Creatinine 1.71 H 1.67 H (0.4-1.4) mg/dL Est GFR (Non-Af Amer) 45 L 46 L (60-130) mL/min Random Glucose 398 H 298 H (70-110) mg/dL Lactic Acid, Venous 2.4 H* (0.4-2.0) mmol/L Calcium 6.6 L 7.2 L (7.9-10.9) mg/dL Calcium Adj for Albumin (8.4-10.2) mg/dL Salicylates (2.8-20.0) mg/dL Acetaminophen (10.0-30.0) mcg/mL Ethyl Alcohol (0.0-10.0) mg/dL Laboratory Results WBC 8.5 K/mm3 (4.0-10.5) 12/20/18 03:25 RBC 3.81 M/mm3 (4.7-6.0) L 12/20/18 03:25 Hgb 12.5 gm/dL (13.5-18.0) L 12/20/18 03:25 Hct 36.9 % (42.0-52.0) L 12/20/18 03:25 MCV 96.9 fl (78-100) 12/20/18 03:25 MCH 32.8 pg (27-31) H 12/20/18 03:25 MCHC 33.9 g/dl (32-36) 12/20/18 03:25 RDW 13.2 % (11.5-14.0) 12/20/18 03:25 Plt Count 242 K/mm3 (150-450) 12/20/18 03:25 MPV 10.3 fl (8-11.3) 12/20/18 03:25 Immature Gran % (Auto) 0.70 % (0.001-0.429) H 12/20/18 03:25 Immature Gran # (Auto) 0.06 K/mm3 (0.000-0.0310) H 12/20/18 03:25 35.5 % (42-75.0) L 12/20/18 03:25 51.7 % (20-51) H 12/20/18 03:25 7.1 % (0.0-9) 12/20/18 03:25 4.2 % (0.0-3.0) H 12/20/18 03:25 0.8 % (0.0-1.0) 12/20/18 03:25 Nucleated RBC % 0.0 k/mm3 (0-1) 12/20/18 03:25 3.0 K/mm3 (1.3-6.0) 12/20/18 03:25 4.39 k/mm3 (1.5-3.5) H 12/20/18 03:25 0.6 k/mm3 (0.0-1.0) 12/20/18 03:25 0.4 k/mm3 (0.0-0.7) 12/20/18 03:25 Absolute Basophils 0.1 k/mm3 (0.0-0.1) 12/20/18 03:25 Sodium 139 mmol/L (132-142) 12/20/18 09:17 142 mmol/L (130-142) 12/20/18 09:17 Potassium 5.7 mmol/L (3.4-4.6) H 12/20/18 09:17 Chloride 111 mmol/L (97-106) H 12/20/18 09:17 Carbon Dioxide 19.9 mmol/L (24-32.6) L 12/20/18 09:17 13.8 mmol/L (6.8-13.8) 12/20/18 09:17 BUN 22 mg/dL (6-23) 12/20/18 09:17 1.67 mg/dL (0.4-1.4) H 12/20/18 09:17 Est GFR (Non-Af Amer) 46 mL/min (60-130) L 12/20/18 09:17 13.2 (9.0-21.6) 12/20/18 09:17 298 mg/dL (70-110) H 12/20/18 09:17 2.4 mmol/L (0.4-2.0) H* 12/20/18 09:17 Calcium 7.2 mg/dL (7.9-10.9) L 12/20/18 09:17 Calcium Adj for Albumin 8.1 mg/dL (8.4-10.2) L 12/20/18 03:25 0.2 mg/dL (0.0-1.1) 12/20/18 03:25 AST 31 U/L (0-48) 12/20/18 03:25 ALT 57 U/L (19-67) 12/20/18 03:25 55 U/L (50-170) 12/20/18 03:25 Less than 0.017 ng/mL (0.00-0.10) 12/20/18 09:17 6.9 gm/dL (6.2-8.2) 12/20/18 03:25 3.5 gm/dl (3.4-5.0) 12/20/18 03:25 259 U/L (73-393) 12/20/18 03:25 Salicylates Less than 2.8 mg/dL (2.8-20.0) L 12/20/18 03:25 Negative (NEGATIVE) 12/20/18 03:25 Acetaminophen Less than 0.2 mcg/mL (10.0-30.0) L 12/20/18 03:25 Negative (NEGATIVE) 12/20/18 03:25 Ur Phencyclidine Scrn Negative (NEGATIVE) 12/20/18 03:25 Urine Amphetamine Negative (NEGATIVE) 12/20/18 03:25 U Benzodiazepines Scrn Negative (NEGATIVE) 12/20/18 03:25 Negative (NEGATIVE) 12/20/18 03:25 Negative (NEGATIVE) 12/20/18 03:25 Ethyl Alcohol 219.0 mg/dL (0.0-10.0) H 12/20/18 03:25 Negative (NEGATIVE) 12/20/18 08:00 Assessment/Plan - Assessment/Plan (1) Drug overdose, intentional Assessment: Patient reports he was trying to get high at a [employer] and denied trying to hurt himself. He drank a fifth of vodka and took 4 tizanidine tablets. Alcohol level of 214. He reports taking a xanax earlier, but his UDS was negative for benzos. His mentation has improved since this morning. He awakens easily and appropriately answers questions. Her received several fluid boluses in the ED. We will continue maintenance fluids at 175/h. When he is able to maintain p.o. hydration, will DC IV fluids. Problem: Acute Qualifiers: Encounter type: initial encounter Qualified Code(s): T50.902A - Poisoning by unspecified drugs, medicaments and biological substances, intentional self- harm, initial encounter (2) Hypotension Assessment: Most recent BP of 91/52. Likely due to combination of alcohol and tizanidine. Will continue IV fluids until his BP has recovered and he is able to maintain po intake. Pressor support has not been needed. Lactate was 2.4, improved to 1.9. He had low urine output initially in the ED, but this is improving. His BMI of 47 may be impeding with accurate BP readings, but he has strong pulses and his mentation is improving. Problem: Acute Qualifiers: Hypotension type: hypotension due to drug Qualified Code(s): I95.2 - Hypotension due to drugs (3) Hyperkalemia Assessment: K+ overnight was 6.9 on two subsequent checks. He did not have peaked T waves on EKG. He was given 10 U insulin and kayexelate, and his K+ improved to 5.7 on most recent check. Chart review shows his potassium has been elevated chronically, and was 6.1 earlier this year. This is likely due to his hyperglycemia, and he may require insulin on DC. Recheck BMP this afternoon. Troponin not elevated. Problem: Acute (4) Hyperglycemia Assessment: Improving with fluids, and after 10 U insulin. He does not use insulin at baseline. Will add SSI insulin for this hospital stay. Likely due to alcohol intoxication and possible insufficient diabetes control. A1C pending. Ketones negative, no anion gap, CO2 not significantly decreased. Problem: Acute (5) Type 2 diabetes mellitus Assessment: He reports today being diagnosed with diabetes 5 or 6 years ago, and initially did require some insulin. His blood glucose levels were greater than 300 on admission. He was given insulin both for glucose and for hyperkalemia, and his glucose is coming down. We will monitor his glucose during his hospitalization, but if he his glucose remains greater than 200, will recommend insulin after discharge. A1C was 7.0 last month, but with his highly elevated glucose on admission, will recheck with this afternoon's labs. Problem: Chronic Qualifiers: Diabetes mellitus fci insulin use: without fci use Diabetes mellitus complication status: without complication Qualified Code(s): E11.9 - Type 2 diabetes mellitus without complications (6) Obstructive sleep apnea Assessment: will order CPAP, use home settings. Problem: Chronic (7) Hypertension Assessment: He is currently hypotensive, and will hold antihypertensives until his blood pressure is consistently greater than 130/90. Problem: Chronic (8) Chronic renal disease, stage 3, moderately decreased glomerular filtration rate (GFR) between 30-59 mL/min/1.73 square meter Assessment: His GFR today is 46, which is similar to his baseline, giving him stage III renal disease. Likely secondary to his diabetes. Discussed aggressive diabetes control to help prevent further kidney damage. Creatinine of 1.78 overnight, which is also similar to previous levels. He had low urine output initially, which is improving, but that would be the only sign of possible acute renal in jury. Problem: Chronic (9) Hypothyroidism Problem: Chronic Qualifiers: Hypothyroidism type: acquired Qualified Code(s): E03.9 - Hypothyroidism, unspecified (10) Obesity Problem: Chronic
[2018-12-20] MEDS ORDERED: traMADol HCL 50 MG TABLET PO PRN (13:11)
[2018-12-20 16:22] LABS: Anion Gap 12.5 mmol/L (6.8-13.8); BUN/Creatinine Ratio 15.2 (9.0-21.6); Calcium * 7.8 mg/dL (7.9-10.9); Carbon Dioxide 23.4 mmol/L (24-32.6); Estimated Creat Clear 57.7; Potassium 4.9 mmol/L (3.4-4.6)
[2018-12-20] MEDS ORDERED: SIMVASTATIN 40 MG TABLET PO SCH (17:00)
[2018-12-20] MEDS: INSULIN LISPRO 100 UNITS/ML VIAL SC SCH ×2 (17:21→20:55)
[2018-12-21] MEDS: NORMAL SALINE 1,000 ML IV PRN (03:32)
[2018-12-21 06:02] LABS: Albumin * 3.3 gm/dl (3.4-5.0); Anion Gap 12.9 mmol/L (6.8-13.8); BUN/Creatinine Ratio 12.4 (9.0-21.6); Bilirubin, Total 0.3 mg/dL (0.0-1.1); Ca. Corrected For Albumin 8.3 mg/dL (8.4-10.2); Calcium * 8.1 mg/dL (7.9-10.9); Carbon Dioxide 22.5 mmol/L (24-32.6); Potassium 4.4 mmol/L (3.4-4.6); Total Protein 6.4 gm/dL (6.2-8.2)
[2018-12-21] MEDS: INSULIN LISPRO 100 UNITS/ML VIAL SC SCH (06:49)
[2018-12-21] MEDS ORDERED: glipiZIDE 5 MG TAB.SR.24H PO SCH (07:00)
[2018-12-21] MEDS ORDERED: LEVOTHYROXINE SODIUM 88 MCG TABLET PO SCH (07:30)
[2018-12-21] MEDS ORDERED: VENLAFAXINE HCL 150 MG, VENLAFAXINE HCL 75 MG PO SCH ×2 (09:00)
[2018-12-21] MEDS ORDERED: LISINOPRIL 5 MG TABLET PO SCH (09:00)
[2018-12-21] MEDS ORDERED: VENLAFAXINE HCL 225 MG PO SCH (09:00)
--- NOTE | 2018-12-21 09:29 | DS ---
(1) Drug overdose, intentional Problem: Resolved Qualifiers: Encounter type: initial encounter Qualified Code(s): T50.902A - Poisoning by unspecified drugs, medicaments and biological substances, intentional self- harm, initial encounter (2) Hypotension Problem: Resolved Qualifiers: Hypotension type: hypotension due to drug Qualified Code(s): I95.2 - Hypotension due to drugs (3) Hyperkalemia Problem: Resolved (4) Hyperglycemia Problem: Resolved (5) Type 2 diabetes mellitus Problem: Chronic Qualifiers: Diabetes mellitus continuous churn buttermaker insulin use: without continuous churn buttermaker use Diabetes mellitus complication status: without complication Qualified Code(s): E11.9 - Type 2 diabetes mellitus without complications (6) Obstructive sleep apnea Problem: Chronic (7) Hypertension Problem: Chronic (8) Chronic renal disease, stage 3, moderately decreased glomerular filtration rate (GFR) between 30-59 mL/min/1.73 square meter Problem: Chronic (9) Hypothyroidism Problem: Chronic Qualifiers: Hypothyroidism type: acquired Qualified Code(s): E03.9 - Hypothyroidism, unspecified (10) Obesity Problem: Chronic Qualifiers: Body mass index: BMI 45.0-49.9 Date of Discharge:: 12/21/18 Description of Stay: Patient with PMHx of diabetes, decreased renal function, alcohol abuse was brought to the ER after excessive drinking and taking unclear substances. He was initially obtunded, only responding to deep sternal rub, with hypotension. BP was in the 80's/40's for several hours in the ED and initially on the floor. He was given aggressive IV hydration in the ED and pressors were not needed. His potassium was found to be 6.9, verified on repeat. EKG did not reveal T wave changes. At the time of my initial H&P he wakens easily, and was able to answer questions. He reports drinking 1/5 of vodka and taking 4 tizanidine tablets. He says he drinks about 3 times a week. Recent medication adjustments were made to due to his decreased renal function and uncontrolled diabetes. He denies other symptoms of infection. He was also given kayexelate, and had several bowel movements. His potassium returned to normal at 4.4 the day of DC. His blood pressure recovered with IV fluids, and his mentation resolved. The severity of his acute illness was discussed with him, and he expressed understanding. Recommend reducing or cessation of alcohol intake, and avoiding concominant tizanidine use. Procedures Performed: none Results and Findings: Lab Pending Results 12/20/18 03:25: WBC 8.5, RBC 3.81 L, Hgb 12.5 L, Hct 36.9 L, MCV 96.9, MCH 32.8 H, MCHC 33.9, RDW 13.2, Plt Count 242, MPV 10.3, Immature Gran % (Auto) 0.70 H, Immature Gran # (Auto) 0.06 H, Neutrophils % 35.5 L, Lymphocytes % 51.7 H, Monocytes % 7.1, Eosinophils % 4.2 H, Basophils % 0.8, Nucleated RBC % 0.0, Neutrophils # 3.0, Lymphocytes # 4.39 H, Monocytes # 0.6, Eosinophils # 0.4, Absolute Basophils 0.1 12/20/18 03:25: Sodium 136, Plasma Sodium 140, Potassium 4.8 H, Chloride 103, Carbon Dioxide 24.4, Anion Gap 13.4, BUN 20, Creatinine 1.63 H, Est GFR (Non-Af Amer) 47 L, BUN/Creatinine Ratio 12.3, Random Glucose 342 H, Calcium 8.0, Calcium Adj for Albumin 8.1 L, Total Bilirubin 0.2, AST 31, ALT 57, Alkaline Phosphatase 55, Total Protein 6.9, Albumin 3.5, Lipase 259, Salicylates Less than 2.8 L, Acetaminophen Less than 0.2 L, Ethyl Alcohol 219.0 H 12/20/18 03:25: Urine Opiates Screen Negative, Barbiturate Screen Negative, Ur Phencyclidine Scrn Negative, Urine Amphetamine Negative, U Benzodiazepines Scrn Negative, Urine Cocaine Screen Negative, Urine Marijuana (THC) Negative 12/20/18 07:10: Sodium 135, Plasma Sodium 140, Potassium 6.9 H* D, Chloride 107 H, Carbon Dioxide 21.3 L, Anion Gap 13.6, BUN 21, Creatinine 1.78 H, Est GFR (Non-Af Amer) 43 L, BUN/Creatinine Ratio 11.8, Random Glucose 412 H, Calcium 6.8 L 12/20/18 08:00: Sodium 135, Plasma Sodium 140, Potassium 6.9 H*, Chloride 107 H, Carbon Dioxide 20.9 L, Anion Gap 14.0 H, BUN 21, Creatinine 1.71 H, Est GFR (Non-Af Amer) 45 L, BUN/Creatinine Ratio 12.3, Random Glucose 398 H, Calcium 6.6 L 12/20/18 08:00: Serum Ketones Negative 12/20/18 09:17: Lactic Acid, Venous 2.4 H* 12/20/18 09:17: Sodium 139, Plasma Sodium 142, Potassium 5.7 H, Chloride 111 H, Carbon Dioxide 19.9 L, Anion Gap 13.8, BUN 22, Creatinine 1.67 H, Est GFR (Non- Af Amer) 46 L, BUN/Creatinine Ratio 13.2, Random Glucose 298 H, Calcium 7.2 L, Troponin I Less than 0.017 12/20/18 12:15: Lactic Acid, Venous 1.9 12/20/18 16:10: Sodium 141, Plasma Sodium 142, Potassium 4.9 H, Chloride 110 H, Carbon Dioxide 23.4 L, Anion Gap 12.5, BUN 23, Creatinine 1.51 H, Est GFR (Non- Af Amer) 51 L, BUN/Creatinine Ratio 15.2, Random Glucose 167 H D, Calcium 7.8 L 12/20/18 16:10: Mean Blood Glucose 147, Hemoglobin A1c 7.0 H 12/21/18 05:40: Sodium 142, Plasma Sodium 142, Potassium 4.4, Chloride 111 H, Carbon Dioxide 22.5 L, Anion Gap 12.9, BUN 18, Creatinine 1.45 H, Est GFR (Non- Af Amer) 54 L, BUN/Creatinine Ratio 12.4, Random Glucose 116 H D, Calcium 8.1, Calcium Adj for Albumin 8.3 L, Total Bilirubin 0.3, AST 141 H, ALT 157 H, Alkaline Phosphatase 57, Total Protein 6.4, Albumin 3.3 L Discharge Location: Home Disposition: Home self-care Condition: Good Discharge Activity: Activity as tolerated Discharge Diet: General/regular food Referrals: Karo Meneses FNP [Primary Care Provider] - One Week Problem Oriented Discharge Instructions to Patient/Family: Alcohol Use Disorder, Alcohol Abuse and Nutrition, Type 2 Diabetes Mellitus, Adult, [id number] Complete Home Medications List: Complete Home Medication List: C-PAP See Dose Instructions .ROUTE .MEDSUPPLY #1 ea 06/14/18 simvastatin 40 mg tablet 40 mg PO QPM #90 tab 07/30/18 metformin ER 1,000 mg tablet,extended release 24hr 1,000 mg PO QPM #90 tab 08/07/18 FreeStyle Lite Strips See Dose Instructions .ROUTE .MEDSUPPLY #100 ea NS 10/07/18 glipizide ER 10 mg tablet, extended release 24 hr 10 mg PO DAILY #90 tab 10/07/18 lisinopril 10 mg tablet 5 mg PO DAILY #45 tab 10/07/18 alprazolam 1 mg tablet 1 mg PO TID PRN #90 tab 11/04/18 blood sugar diagnostic strips See Dose Instructions .ROUTE .MEDSUPPLY #100 ea 11/04/18 blood-glucose meter See Dose Instructions .ROUTE .MEDSUPPLY #1 ea 11/04/18 tizanidine 4 mg capsule 4 mg PO TID PRN #60 cap 11/07/18 tramadol 50 mg tablet 50 mg PO Q8H PRN #30 tab 11/20/18 diclofenac sodium 50 mg tablet,delayed release 50 mg PO DAILY #30 tab 12/09/18 Levothyroxine Sodium [Synthroid] 88 mcg PO DAILY 12/20/18 Melatonin 10 mg PO HS PRN 12/20/18 Venlafaxine HCl [Venlafaxine HCl ER] 225 mg PO DAILY 12/20/18
[2018-12-21 10:04] VITALS: BP 145/80
== END 2018-12-21 10:25 | disposition home or self-care (01) | DRG 918 ==
LOC: ER 02:49 → SCU 09:24 → MS 09:40
PROVIDERS: ADMIT Family Medicine; ATTEND Family Medicine
DX: E87.5 Hyperkalemia; E11.65 Type 2 diabetes mellitus with hyperglycemia; N28.9 Disorder of kidney and ureter, unspecified; I12.9 Hypertensive chronic kidney disease with stage 1 through stage 4 chronic kidney disease, or unspecified chronic kidney disease; N18.3 Chronic kidney disease, stage 3 (moderate); E86.0 Dehydration; E66.01 Morbid (severe) obesity due to excess calories; E03.9 Hypothyroidism, unspecified; E11.22 Type 2 diabetes mellitus with diabetic chronic kidney disease; F10.129 Alcohol abuse with intoxication, unspecified; T42.8X2A Poisoning by antiparkinsonism drugs and other central muscle-tone depressants, intentional self-harm, initial encounter; I95.2 Hypotension due to drugs; Z68.42 Body mass index [BMI] 45.0-49.9, adult
CPT/HCPCS: 36415; 80048; 80053; 80307; 82009; 83036; 83605; 83690; 84484; 85025; 93005; 94660; 96361; 96374; 96375; 99285; G0480